=== PATIENT | female | born 1965 | race Caucasian/White ===

== ENCOUNTER 2022-10-20 11:30 | Outpatient (RCR) | payer MEDICARE, BC, SELFPAY | END 2022-10-20 14:58 | disposition home or self-care (01) | PROVIDERS: PCP Physician Assistant Medical; Visit Provider Family Medicine | DX: M53.3 Sacrococcygeal disorders, not elsewhere classified (principal); Z51.89 Encounter for other specified aftercare | CPT/HCPCS: 97110; 97162 ==

== ENCOUNTER 2024-07-26 12:34 | Emergency (ER) | payer MEDICARE, BC, SELFPAY ==
--- NOTE | 2024-07-26 12:47 | ED.GENADULT ---
HPI - General Adult General Chief complaint: Extremity Pain/Injury, Lower Stated complaint: R leg injury Time Seen by Provider: 07/26/24 12:40 History of Present Illness HPI narrative: Pt here for eval of injury to R outer knee . Was attempting to break the fall of in sauna undergoing syncopal. Pt states she heard crack in knee. Denies previous injury/surgery to knee. Reports swelling and pain worsening with weightbearing. 58-year-old woman presenting to the emergency department with concern of pain to her right knee. She has noted some swelling and increasing pain since this injury. Was attempting to catch her in the sauna when had passed out rolling toward her; tried to brace his continued descent I think. She describes a lateral impact to the right knee and hearing a crack. No other injuries of significance were sustained. Does treat for chronic pain. Related Data Home Medications ?Medication ?Instructions ?Recorded ?Confirmed morphine 15 mg immediate release PO 07/26/24 tablet tizanidine 4 mg tablet 4 mg PO BID PRN pain 07/26/24 07/26/24 Allergies Allergy/AdvReac Type Severity Reaction Status Date / Time No Known Drug Allergies Allergy Verified 07/26/24 12:48 Review of Systems Status of ROS: Reports: 6 or more systems reviewed and unremarkable except as noted in History and below PFSH PFSH Social History Smoking Status: Smoker, status unknown Non-prescribed substance use: denies use Exam Narrative: Exam Narrative: Pleasant. NAD. Uncomfortable though favoring the right leg. Head looks to be atraumatic. Neck is supple. Breathing easily. Heart in regular rate and rhythm. Moving upper extremities without difficulty. Examination of the right knee in question shows a small effusion. She does not have apprehension to palpation or manipulation of the patella. No laxity to varus or valgus stressors and does not appear to cause significant increase in pain. She is sore to palpation in the joint line on the right. Negative Hi's. Did not attempt Marlyn's. Const: Vital Signs, click to edit/add: Vital Signs - 24 hr 07/26/24 12:49 Temperature 97.9 F Pulse Rate [Pulse Oximeter] 73 Respiratory Rate 14 Blood Pressure [Ri ght Upper Arm] 160/91 H Pulse Oximetry 98 Oxygen Delivery Me thod Room Air Documenting provider has reviewed patient's vital signs: yes Course Vital Signs Vital signs: Initial Vital Signs Temperature 97.9 F 07/26/24 12:49 Temperature Source Temporal Artery Scan 07/26/24 12:49 Pulse Rate 73 07/26/24 12:49 Pulse Rhythm Regular 07/26/24 12:49 Respiratory Rate 14 07/26/24 12:49 Blood Pressure 160/91 H 07/26/24 12:49 Blood Pressure Mean 114 H 07/26/24 12:49 Blood Pressure Position Sitting 07/26/24 12:49 Pulse Oximetry 98 07/26/24 12:49 Oxygen Delivery Method Room Air 07/26/24 12:49 Vital Signs Temperature 97.9 F 07/26/24 12:49 Pulse Rate 73 07/26/24 12:49 Respiratory Rate 14 07/26/24 12:49 Blood Pressure 160/91 H 07/26/24 12:49 Pulse Oximetry 98 07/26/24 12:49 Oxygen Delivery Method Room Air 07/26/24 12:49 Temperature 97.9 F 07/26/24 15:06 Pulse Rate 73 07/26/24 15:06 Respiratory Rate 14 07/26/24 15:06 Blood Pressure 151/74 H 07/26/24 15:06 Pulse Oximetry 98 07/26/24 12:49 Oxygen Delivery Method Room Air 07/26/24 12:49 Medical Decision Making MDM Narrative Medical decision making narrative: She would appreciated least an ice pack. Given a couple bags of ice and affixed with Brandon wraps. Feels painful but tolerable as long as not moving. I do think there is an effusion here implying more significant injury. Shannan unclear on the mechanism. Does not appear to have patellar involvement. Not clearly with pain over the fibular head otherwise I would consider a proximal fibular fracture. And does not appear to have an internal ligamentous derangement. Warrants at least an x-ray. X-ray of the right knee independently reviewed by me shows a comminuted fracture in the lateral tibial plateau. Would anticipate non operative management however deferring certainly to Orthopedics. Radiology over-read note some depression here. Discussed these findings with orthopedics on-call. Trying to arrange outpatient follow-up. Would also like CT imaging done before follow-up. This has been ordered. See below Did review all findings with Ms. Campbell. Placed in a knee immobilizer and given crutches. EXAM: CT OF THE RIGHT KNEE, WITHOUT CONTRAST CLINICAL INDICATION: Knee pain following fall. Tibial fracture. COMPARISON STUDIES: 07/26/2024 radiographs. TECHNICAL: Non-contrast CT of the knee with axial images. Sagittal oblique and coronal oblique reformatted images were created. FINDINGS: OSSEOUS STRUCTURES: Femur: No fracture. Tibia: Acute fracture of the lateral tibial plateau. The fracture involves the lateral and posterior aspect of the lateral tibial plateau measuring up to 3.0 cm AP x 2.5 cm RL. The fracture involves 2/3 of the articular surface area. There are several central fracture fragments with fragmentation of the lateral and posterior rim. There is up to 0.3 cm of impaction at the articular surface. Fibula: No fracture. Patella: No fracture. JOINT SPACE: Knee Joint: Large lipohemarthrosis. No loose bodies. No popliteal cyst. Chondrocalcinosis. Capsular calcinosis. Medial Compartment: No joint space narrowing, hypertrophic change or subchondral cystic change. Lateral Compartment: No joint space narrowing, hypertrophic change or subchondral cystic change. Patellofemoral Compartment: No joint space narrowing, hypertrophic change or subchondral cystic change. EXTENSOR MECHANISM: Distal Quadriceps Tendon: No tear or tendinopathy. Patellar Tendon: No tear or tendinopathy. Patellar Retinaculum: Normal. Patellar Alignment: No tilt or subluxation. SOFT TISSUES: No subcutaneous edema, fluid collection or hematoma. MUSCLES AND TENDONS: No intramuscular hematoma. No muscle atrophy. NEUROVASCULAR STRUCTURES: No abnormality of the visualized neurovascular structures. IMPRESSION: 1. Acute fracture of the lateral tibial plateau with mild impaction at the articular surface. 2. Large lipohemarthrosis. 3. Chondrocalcinosis and capsular calcinosis. See patient discharge plan for further discussion Use the crutches to avoid walking on your right leg. Expect a call from orthopedics yet today. I would call if you do not hear from them by end of day. Phone number is [phone] Medical Records Medical records reviewed: Yes I reviewed the patient's medical records Discharge Plan Discharge Clinical Impression: Fracture of tibial plateau Patient Disposition: Home w/ Parent or Adult Condition: Stable Additional Instructions: Use the crutches to avoid walking on your right leg. Expect a call from orthopedics yet today. I would call if you do not hear from them by end of day. Phone number is [phone] Prescriptions: No Action tizanidine 4 mg tablet 4 mg PO BID PRN (Reason: pain) morphine 15 mg tablet PO Follow Up/Referrals: Krystal Jones [facility] [Primary Care Provider] - Stand Alone Forms: [employer] Info Instructions
[2024-07-26 12:49] VITALS: BP 160/91; PULSE 73; RESP 14; TEMP 36.6; O2SAT 98; BMI 30.8
--- NOTE | 2024-07-26 13:05 | CRLHL7_ITS ---
For Patients: As a result of the Century Cures Act, medical imaging exams and procedure reports are released immediately into your electronic medical record. You may view this report before your referring provider. If you have questions, please contact your health care provider. INDICATION: Trauma. TECHNIQUE: Right knee radiographs, 3 views. COMPARISON: None. FINDINGS: Acute depressed comminuted fracture of the lateral tibial plateau. Small suprapatellar joint effusion. The patella appears intact. No significant soft tissue edema or radiopaque foreign bodies. IMPRESSION: Acute depressed comminuted fracture of the lateral tibial plateau with a small associated joint effusion. Dictated by Nish Hernandez MD @ 07/26/2024 1:50:32 PM (Electronically Signed)
--- NOTE | 2024-07-26 13:52 | CRLHL7_ITS ---
For Patients: As a result of the Century Cures Act, medical imaging exams and procedure reports are released immediately into your electronic medical record. You may view this report before your referring provider. If you have questions, please contact your health care provider. EXAM: CT OF THE RIGHT KNEE, WITHOUT CONTRAST CLINICAL INDICATION: Knee pain following fall. Tibial fracture. COMPARISON STUDIES: 07/26/2024 radiographs. TECHNICAL: Non-contrast CT of the knee with axial images. Sagittal oblique and coronal oblique reformatted images were created. FINDINGS: OSSEOUS STRUCTURES: Femur: No fracture. Tibia: Acute fracture of the lateral tibial plateau. The fracture involves the lateral and posterior aspect of the lateral tibial plateau measuring up to 3.0 cm AP x 2.5 cm RL. The fracture involves 2/3 of the articular surface area. There are several central fracture fragments with fragmentation of the lateral and posterior rim. There is up to 0.3 cm of impaction at the articular surface. Fibula: No fracture. Patella: No fracture. JOINT SPACE: Knee Joint: Large lipohemarthrosis. No loose bodies. No popliteal cyst. Chondrocalcinosis. Capsular calcinosis. Medial Compartment: No joint space narrowing, hypertrophic change or subchondral cystic change. Lateral Compartment: No joint space narrowing, hypertrophic change or subchondral cystic change. Patellofemoral Compartment: No joint space narrowing, hypertrophic change or subchondral cystic change. EXTENSOR MECHANISM: Distal Quadriceps Tendon: No tear or tendinopathy. Patellar Tendon: No tear or tendinopathy. Patellar Retinaculum: Normal. Patellar Alignment: No tilt or subluxation. SOFT TISSUES: No subcutaneous edema, fluid collection or hematoma. MUSCLES AND TENDONS: No intramuscular hematoma. No muscle atrophy. NEUROVASCULAR STRUCTURES: No abnormality of the visualized neurovascular structures. IMPRESSION: 1. Acute fracture of the lateral tibial plateau with mild impaction at the articular surface. 2. Large lipohemarthrosis. 3. Chondrocalcinosis and capsular calcinosis. Please note that all CT scans at this facility use dose modulation, iterative reconstruction, and/or weight-based dosing when appropriate to reduce radiation dose to as low as reasonably achievable. Dictated by Minesh Lopez MD @ 07/26/2024 2:44:30 PM (Electronically Signed)
[2024-07-26 15:06] VITALS: BP 151/74; PULSE 73; RESP 14; TEMP 36.6
== END 2024-07-26 15:07 | disposition home or self-care (01) ==
PROVIDERS: Emergency Provider Family Medicine; PCP Physician Assistant Medical
DX: S82.141A Displaced bicondylar fracture of right tibia, initial encounter for closed fracture (principal); W18.30XA Fall on same level, unspecified, initial encounter
CPT/HCPCS: 73562; 73700; 99283; 99284

== ENCOUNTER 2024-10-03 10:15 | Outpatient (RCR) | payer MEDICARE, BC, SELFPAY | END 2025-01-31 23:59 | disposition home or self-care (01) | PROVIDERS: PCP Physician Assistant Medical; Visit Provider Family Medicine | DX: M19.012 Primary osteoarthritis, left shoulder (principal); M94.212 Chondromalacia, left shoulder; M25.511 Pain in right shoulder; G89.29 Other chronic pain; Z98.1 Arthrodesis status; M53.3 Sacrococcygeal disorders, not elsewhere classified; Z51.89 Encounter for other specified aftercare | CPT/HCPCS: 97110; 97162 ==